=== PATIENT | female | born 1995 | race Caucasian/White ===

== ENCOUNTER 2017-09-26 12:48 | Emergency (ER) | payer OTHER ==
[~2017-09-26] VITALS: Ht 157.5 cm; Wt 81.6 kg
[~2017-09-26 12:48] MED LIST: IBUP-1222 PO; OXYC-302 PO
[2017-09-26 14:52] LABS: BASOPHILS # (AUTO) 0.06 x10^3/uL (0-0.1); BASOPHILS % (AUTO) 1 % (0-1); EOSINOPHILS % (AUTO) 1 % (1-7); LYMPHOCYTES # (AUTO) 2.24 x10^3/uL (1-3.4); LYMPHOCYTES % (AUTO) 24 % (22-44); MD NO; MEAN CORPUSCULAR HEMOGLOBIN 28.2 pg (27.0-34.8); MEAN CORPUSCULAR HGB CONC 33.4 g/dL (32.4-35.8); MEAN CORPUSCULAR VOLUME 84.6 fL (80-100); MEAN PLATELET VOLUME 9.1 fL (7.4-10.4); MONOCYTES # (AUTO) 0.44 x10^3/uL (0.2-0.8); MONOCYTES % (AUTO) 5 % (2-9); NEUTROPHILS % (AUTO) 70 % (42-75); PLATELET COUNT 695 x10^3/uL (130-400); RED BLOOD COUNT 4.54 x10^6/uL (3.82-5.3); RED CELL DISTRIBUTION WIDTH 13.8 % (9.6-15.2)
[2017-09-26 14:58] LABS: CHLORIDE 106 mmol/L (98-107)
[2017-09-26 15:04] LABS: ALBUMIN 3.9 g/dL (3.4-5.0); CALCIUM 8.5 mg/dL (8.5-10.1)
[2017-09-26 15:05] LABS: ANION GAP 7 mmol/L (5-15)
[2017-09-26 15:08] LABS: MICROSCOPIC NOT IND
[2017-09-26 15:11] LABS: CULTURE INDICATED? NO
[2017-09-26 15:21] LABS: ALANINE AMINOTRANSFERASE 30 U/L (12-78); ALKALINE PHOSPHATASE 57 U/L (45-117); BILIRUBIN,TOTAL 0.7 mg/dL (0.2-1.0); CREATININE 0.57 mg/dL (0.55-1.02); TOTAL PROTEIN 7.7 g/dL (6.4-8.2)
[2017-09-26] MEDS ORDERED: HYDROcodone/APAP 5/325 TABLET PO ONE (15:30)
[2017-09-26] MEDS ORDERED: DICYCLOMINE 20 MG TABLET PO ONE (15:30)
[2017-09-26 15:55] VITALS: BP 100/58
== END 2017-09-26 15:57 | disposition home or self-care (01) ==
LOC: ED 15:21
DX: R10.33 Periumbilical pain (principal); K42.9 Umbilical hernia without obstruction or gangrene
CPT/HCPCS: 36415; 80053; 81003; 83690; 84703; 85025; 99284

== ENCOUNTER 2018-01-06 22:48 | Emergency (ER) | payer OTHER ==
[~2018-01-06] VITALS: Ht 157.5 cm; Wt 82.2 kg
[2018-01-06 23:12] VITALS: BP 113/77
[2018-01-06 23:49] LABS: CULTURE INDICATED? YES; MICROSCOPIC INDICATED
== END 2018-01-07 00:58 | disposition left against medical advice (07) ==
LOC: ED 23:59
DX: R10.2 Pelvic and perineal pain (principal)
CPT/HCPCS: 81001; 81025; 87086; 99281

== ENCOUNTER 2018-03-24 20:32 | Emergency (ER) | payer OTHER ==
[~2018-03-24] VITALS: Ht 157.5 cm; Wt 82.0 kg
[2018-03-24 20:37] VITALS: BP 112/75
--- NOTE | 2018-03-24 20:52 | NUR ---
PT PRESENTED TO ED WITH "SPOTTING " SINCE TODAY. PT SATED " I JUST FOUND OUT I AM ." PT A&OX4. PT PLACED IN ROOM AND PLACED ON BP AND CONT. PULSE OXIMETER. ASSESSMENT COMPLETED. CALL LIGHT IN REACH.
--- NOTE | 2018-03-24 21:20 | NUR ---
PT TAKEN TO US
[2018-03-24 21:30] LABS: CULTURE INDICATED? YES; MICROSCOPIC INDICATED
--- NOTE | 2018-03-24 21:47 | NUR ---
[facility]OOD BANK CALLED AND INFORMED ME THAT PT WAS UNDER DIFFERENT LAST NAME WHEN SEEN PREVIOUSLY. ASKED PT IS SHE WAS UNDER DIFFERENT NAME, PT STATED YES. REGISTRATION ALERTED AND ACCOUNTS MERGED INTO ONE ACCOUNG. BLOOD BANK AWARE AND AWARE.
--- NOTE | 2018-03-24 21:48 | NUR ---
URINE SENT TO LAB.
--- NOTE | 2018-03-24 21:57 | NUR ---
PT UP FOR RECHECK
== END 2018-03-24 23:10 | disposition home or self-care (01) ==
LOC: MERGE 20:32 → ED 23:05
DX: O20.0 Threatened abortion (principal)
CPT/HCPCS: 36415; 76801; 81001; 84702; 86901; 87086; 99284

== ENCOUNTER 2018-06-18 00:14 | Emergency (ER) | payer OTHER ==
[~2018-06-18] VITALS: Ht 157.5 cm; Wt 83.6 kg
--- NOTE | 2018-06-18 00:50 | NUR ---
assessment made. chart up for MD to see. patient c/o possible rectal bleeding started 2 hrs ago. denies pain.
--- NOTE | 2018-06-18 00:51 | NUR ---
PA at bedside for patient evaluation.
--- NOTE | 2018-06-18 00:57 | NUR ---
rectal exam positive for blood.
--- NOTE | 2018-06-18 00:59 | NUR ---
PA at bedside for another rectal exam using anoscope. assisted by female RN.
[2018-06-18 01:21] VITALS: BP 101/69
--- NOTE | 2018-06-18 01:21 | NUR ---
patient discharged with prescription and instruction. verbalized understanding.
== END 2018-06-18 01:24 | disposition home or self-care (01) ==
LOC: ED 00:46
DX: O26.892 Other specified pregnancy related conditions, second trimester (principal); K60.0 Acute anal fissure; K62.5 Hemorrhage of anus and rectum; Z3A.17 17 weeks gestation of pregnancy
CPT/HCPCS: 99283

== ENCOUNTER 2018-08-28 23:56 | Outpatient (CLI) | payer OTHER ==
[~2018-08-28] VITALS: Ht 157.5 cm; Wt 84.5 kg
[2018-08-29 00:28] VITALS: BP 112/63
[2018-08-29 00:35] LABS: MICROSCOPIC INDICATED
== END 2018-08-29 01:02 | disposition home or self-care (01) ==
LOC: LDOP 23:56
PROVIDERS: ATTEND Obstetrics & Gynecology
DX: O26.893 Other specified pregnancy related conditions, third trimester (principal); R10.9 Unspecified abdominal pain; Z3A.28 28 weeks gestation of pregnancy
CPT/HCPCS: 59025; 81001; 87086; 99211; G0463

== ENCOUNTER 2019-01-15 21:25 | Emergency (ER) | payer OTHER, MEDICAID ==
[~2019-01-15] VITALS: Ht 157.5 cm; Wt 86.8 kg
[2019-01-15 22:48] LABS: BASOPHILS # (AUTO) 0.02 x10^3/uL (0-0.1); BASOPHILS % (AUTO) 0 % (0-1); EOSINOPHILS # (AUTO) 0.16 x10^3/uL (0-0.4); EOSINOPHILS % (AUTO) 2 % (1-7); LYMPHOCYTES # (AUTO) 2.22 x10^3/uL (1-3.4); LYMPHOCYTES % (AUTO) 24 % (22-44); MD NO; MEAN CORPUSCULAR HEMOGLOBIN 28.4 pg (27.0-34.8); MEAN CORPUSCULAR HGB CONC 33.1 g/dL (32.4-35.8); MEAN PLATELET VOLUME 8.8 fL (7.4-10.4); MONOCYTES # (AUTO) 0.47 x10^3/uL (0.2-0.8); MONOCYTES % (AUTO) 5 % (2-9); NEUTROPHILS # (AUTO) 6.51 x10^3/uL (1.8-6.8); NEUTROPHILS % (AUTO) 69 % (42-75); PLATELET COUNT 656 x10^3/uL (130-400); RED BLOOD COUNT 4.46 x10^6/uL (3.82-5.3); RED CELL DISTRIBUTION WIDTH 14.9 % (9.6-15.2)
[2019-01-15 22:58] LABS: ALANINE AMINOTRANSFERASE 52 U/L (12-78); ALBUMIN 3.7 g/dL (3.4-5.0); ANION GAP 4 mmol/L (5-15); CALCIUM 8.4 mg/dL (8.5-10.1); CHLORIDE 110 mmol/L (98-107)
[2019-01-15 23:00] LABS: ALKALINE PHOSPHATASE 91 U/L (45-117); BILIRUBIN,TOTAL 0.3 mg/dL (0.2-1.0); TOTAL PROTEIN 7.5 g/dL (6.4-8.2)
[2019-01-15 23:33] LABS: HCG UR SG 1.026 (1.003-1.030); MICROSCOPIC AUTO
[2019-01-15 23:34] LABS: CULTURE INDICATED? YES
[2019-01-15 23:52] VITALS: BP 124/78
== END 2019-01-15 23:57 | disposition home or self-care (01) ==
LOC: ED 23:32
DX: R10.32 Left lower quadrant pain (principal)
CPT/HCPCS: 36415; 80053; 81001; 81025; 83690; 85025; 87086; 99283